=== PATIENT | female | born 1935 | race Caucasian/White ===

== ENCOUNTER 2022-02-14 07:22 | Emergency (ER) | payer OTHER ==
[2022-02-14] MEDS ORDERED: Acetaminophen 325 MG TAB ONE (08:15)
[2022-02-14] MEDS ORDERED: Sodium Chloride 0.9% 1,000 ML ONE (08:15)
[2022-02-14] MEDS ORDERED: Ibuprofen 400 MG TAB ONE (08:15)
[2022-02-14] MEDS ORDERED: cefTRIAXone\\ROCEPHIN 2 GM VIAL ONE (08:32)
[2022-02-14] MEDS ORDERED: Sodium Chloride 0.9% 100 ML ONE (08:32)
[2022-02-14 08:40] LABS: #Lymphocytes 0.1 thou/uL (1.20-3.40); #Neutrophils 6.7 thou/uL (1.40-6.50); %Basophils 0.5 % (0.0-1.0); %Eosinophils 0.1 % (0.0-10.0); %Lymphocytes 1.8 % (21.0-51.0); %Monocytes 0.3 % (0.0-10.0); %Neutrophils 97.3 % (42.0-75.0); Hemoglobin 9.8 g/dL (12.0-16.0); Mean Corpuscular HGB CONC 30.1 g/dL (32.0-36.0); Mean Corpuscular Hemoglobin 26.1 pg (27.0-31.0); Mean Corpuscular Volume 86.6 fL (78.0-98.0); Mean Platelet Volume 6.9 fL (7.4-10.4); Platelet Count 166 thou/uL (130-400); RBC Distribution Width 14.7 % (11.5-14.5); Red Blood Cell (RBC) Count 3.77 mill/uL (4.20-5.40); White Blood Cell (WBC) Count 6.9 thou/uL (4.8-10.8)
[2022-02-14 08:42] LABS: Bilirubin Negative (Negative); Blood, Urine Large (Negative); Clarity Slightly Cloudy (Clear); Glucose, Urine (Dipstick) Negative (Negative); Ketone, Urine Negative (Negative); Leukocyte Small (Negative); Nitrite Negative (Negative); Protein, Urine (Dipstick) 30 mg/dL (Neg-Trace); Urobilinogen 0.2 mg/dL (Less than 2)
[2022-02-14 08:53] LABS: Bacteria/HPF 3+ HPF (None Seen); Mucous/LPF Rare LPF (<2+); RBC/HPF 21-50 HPF (0-3)
[2022-02-14 08:53] LABS: ALT (SGPT) 80 U/L (8-55); AST (SGOT) 196 U/L (5-34); Albumin 3.5 g/dL (3.4-4.8); Alkaline Phosphatase 109 U/L (40-110); Anion Gap 18 mmol/L (10-20); BUN (Urea Nitrogen) 31 mg/dL (9.8-20.1); Bilirubin, Total 1.1 mg/dL (0.2-1.2); Calc. Creatinine Clearance 0 mL/min (70-130); Calcium 8.5 mg/dL (7.8-10.44); Carbon Dioxide 17 mmol/L (23-31); Chloride 109 mmol/L (98-107); Globulin 2.5 g/dL (2.4-3.5); Glucose 132 mg/dL (83-110); Lipase 14 U/L (8-78); Potassium 3.4 mmol/L (3.5-5.1); Sodium 141 mmol/L (136-145)
[2022-02-14 08:58] LABS: CK (CPK) 73 U/L (29-168); CRP (Inflammatory) Less than 0.50 mg/dL (= or < 0.5); Magnesium 1.3 mg/dL (1.6-2.6)
[2022-02-14 09:13] LABS: CKMB 2.2 ng/mL (0-6.6)
[2022-02-14] MEDS ORDERED: Vancomycin HCl 500 MG VIAL ONE (09:27)
[2022-02-14 09:35] LABS: SARS-CoV-2 NAA Rapid Test Not Detected (NotDetected)
[2022-02-14] MEDS ORDERED: Magnesium 2 GM/50 ML BAG (IN WATER) ONE (09:38)
[2022-02-14] MEDS ORDERED: Fentanyl 100 MCG/2 ML VIAL ONE (10:38)
== END 2022-02-14 11:38 | disposition short-term general hospital (02) ==
LOC: MADERS 07:22
DX: A41.9 Sepsis, unspecified organism (principal); N39.0 Urinary tract infection, site not specified; N28.89 Other specified disorders of kidney and ureter; I10 Essential (primary) hypertension; M19.90 Unspecified osteoarthritis, unspecified site; Z20.822 Contact with and (suspected) exposure to COVID-19; Z87.442 Personal history of urinary calculi; Z79.82 Long term (current) use of aspirin; Z79.899 Other long term (current) drug therapy
CPT/HCPCS: 0240U; 71045; 74176; 82550; 82553; 83605; 83690; 83735; 84484; 86140; 87040; 87086; 87149 ×2; 94760; 80053; 81003; 81015; 84443; 85025; 87077; 87186; 96361; 96365; 96367; 96375; J0696; J3010; J3370; J3475; J3490; J7050